=== PATIENT | female | born 1970 | race African-American/Black ===

== ENCOUNTER 2021-06-10 12:16 | Emergency (ER) | payer MEDICAID ==
[~2021-06-10] VITALS: Ht 165.1 cm; Wt 107.0 kg
[2021-06-10] MEDS ORDERED: KETOROLAC 60MG/2ML VIAL IM STA (14:07)
[2021-06-10 14:50] VITALS: BP 87/103
[2021-06-10] MEDS ORDERED: BACITRACIN ZINC OINT UDPKT TOP NR (15:00)
[2021-06-10] MEDS ORDERED: LIDOCAINE HCL 1% 10 MG/ML 10ML VIAL IJ NR (15:00)
[2021-06-10] MEDS ORDERED: LIDOCAINE HCL/EPINEPHRINE 1%-EPI 1:100,000 20 ML VIAL INFIL ONE (15:30)
[2021-06-10] MEDS ORDERED: NAPR-681 PO (15:40)
== END 2021-06-10 16:29 | disposition home or self-care (01) ==
LOC: ER 12:16
DX: M17.12 Unilateral primary osteoarthritis, left knee (principal); E11.9 Type 2 diabetes mellitus without complications; I10 Essential (primary) hypertension; Z91.018 Allergy to other foods; Z98.51 Tubal ligation status
CPT/HCPCS: 73562; 76881; 96372; 99284; J1885; J3490

== ENCOUNTER 2024-05-21 14:50 | Emergency (ER) | payer SELFPAY ==
[~2024-05-21] VITALS: Ht 165.1 cm; Wt 108.9 kg
[~2024-05-21 14:50] MED LIST: NAPR-681 PO
[2024-05-21 14:51] VITALS: O2SAT 99
[2024-05-21 15:00] VITALS: BP 169/79; PULSE 74; RESP 16; TEMP 36.8; O2SAT 98
[2024-05-21] MEDS ORDERED: GABA-529 MT (17:30)
[2024-05-21] MEDS ORDERED: ACET-2708 MT (17:30)
[2024-05-21] MEDS ORDERED: LIDO700A15 TP (17:30)
== END 2024-05-21 18:19 | disposition home or self-care (01) ==
LOC: ER 14:54
DX: M25.511 Pain in right shoulder (principal); E11.9 Type 2 diabetes mellitus without complications; J45.909 Unspecified asthma, uncomplicated; I10 Essential (primary) hypertension; Z98.51 Tubal ligation status; Z98.890 Other specified postprocedural states; Z79.899 Other long term (current) drug therapy
CPT/HCPCS: 73030; 99283